=== PATIENT | female | born 1980 | race African-American/Black ===

== ENCOUNTER 2024-04-23 16:20 | Emergency (ER) | payer SELFPAY ==
[~2024-04-23] VITALS: Ht 175.3 cm; Wt 62.0 kg
[2024-04-23 16:27] VITALS: BP 124/84; PULSE 84; RESP 16; TEMP 98.2; O2SAT 100
[2024-04-23 17:15] LABS: MEAN CORPUSCULAR HEMOGLOBIN 21.4 pg (28.0-32.0); MEAN CORPUSCULAR HGB CONC 28.9 g/dL (31.0-37.0); MEAN CORPUSCULAR VOLUME 73.9 fL (81.0-99.0); PLATELET 150 x1000/uL (130-400); RED BLOOD CELL COUNT 2.45 mill/uL (4.2-5.4); RED CELL DISTRIBUTION WIDTH 21.4 % (11.6-14.6); WHITE BLOOD COUNT 2.7 x1000/uL (4.5-11.0)
[2024-04-23 17:21] LABS: HEMATOCRIT 18.1 % (36.0-48.0); HEMOGLOBIN 5.2 g/dL (12.0-16.0)
[2024-04-23 17:23] LABS: CHLORIDE 108 mEq/L (98-107); POTASSIUM 3.6 mEq/L (3.5-5.1); SODIUM 140 mEq/L (136-145)
[2024-04-23 17:24] LABS: CALCIUM 9.4 mg/dL (8.7-10.4); CARBON DIOXIDE 27 mEq/L (21-32)
[2024-04-23 17:29] LABS: CREATININE 0.7 mg/dL (0.6-1.0); GLUCOSE 103 mg/dL (70-105); UREA NITROGEN BLOOD 9 mg/dL (9-23)
[2024-04-23 17:34] LABS: HCG SCREEN NEGATIVE
[2024-04-23 18:10] LABS: INR 1.1; PROTHROMBIN TIME 12.3 sec (9.6-11.0)
== END 2024-04-23 20:44 | disposition left against medical advice (07) ==
LOC: ER 16:20
DX: D64.9 Anemia, unspecified (principal); Z76.0 Encounter for issue of repeat prescription; Z53.29 Procedure and treatment not carried out because of patient's decision for other reasons
CPT/HCPCS: 36415; 80048; 84703; 85027; 99291

== ENCOUNTER 2024-04-24 10:24 | Emergency (ER) | payer MEDICAID ==
[~2024-04-24] VITALS: Ht 172.7 cm; Wt 59.0 kg
[2024-04-24 11:04] VITALS: TEMP 98; O2SAT 100
[2024-04-24 11:13] LABS: CHLORIDE 107 mEq/L (98-107); POTASSIUM 3.4 mEq/L (3.5-5.1); SODIUM 138 mEq/L (136-145)
[2024-04-24 11:15] LABS: CALCIUM 9.8 mg/dL (8.7-10.4); CARBON DIOXIDE 26 mEq/L (21-32)
[2024-04-24 11:20] LABS: CREATININE 0.8 mg/dL (0.6-1.0); GLUCOSE 107 mg/dL (70-105); UREA NITROGEN BLOOD 5 mg/dL (9-23)
[2024-04-24 12:09] LABS: HCG SCREEN NEGATIVE
[2024-04-24 12:11] LABS: BASOPHILS % 1.3 % (0.0-2.0); DIFFERENTIAL COMMENT 0; EOSINOPHILS % 2.4 % (0.0-5.0); LYMPHOCYTES % 38.9 % (20.0-50.0); MEAN CORPUSCULAR HGB CONC 28.6 g/dL (31.0-37.0); MEAN CORPUSCULAR VOLUME 73.5 fL (81.0-99.0); MEAN PLATELET VOLUME 8.4 fl (7.4-10.4); MONOCYTES % 7.2 % (2.0-8.0); NEUTROPHILS % 50.2 % (40.0-76.0); PLATELET 153 x1000/uL (130-400); RED BLOOD CELL COUNT 2.65 mill/uL (4.2-5.4); RED CELL DISTRIBUTION WIDTH 21.6 % (11.6-14.6); WHITE BLOOD COUNT 2.2 x1000/uL (4.5-11.0)
[2024-04-24 12:17] LABS: HEMATOCRIT. 19.5 % (36.0-48.0)
[2024-04-24 12:18] LABS: HEMOGLOBIN. 5.6 g/dL (12.0-16.0)
[2024-04-24 12:48] VITALS: BP 107/50; PULSE 81; RESP 16; O2SAT 100
[2024-04-24] MEDS: IRON SUCROSE COMPLEX 100 MG/5 ML ML IV SCH (13:32)
== END 2024-04-24 14:43 | disposition left against medical advice (07) ==
LOC: ER 10:24 → EDBEDREQ 13:56 → ER 14:43
DX: D64.9 Anemia, unspecified (principal)
CPT/HCPCS: 80048; 84703; 85025; 86850; 86900; 86901; 36415; 96374; 99291; Z7610 ×3; A4606